=== PATIENT | female | born 1970 | race African-American/Black ===

== ENCOUNTER 2018-07-18 14:08 | Emergency (ER) | payer BC, OTHER ==
[2018-07-18] MEDS ORDERED: FENTANYL CITRATE INJ/PF 100 MCG/2 ML AMPUL IV ONE (14:31)
[2018-07-18] MEDS ORDERED: ONDANSETRON 4 MG TAB.RAPDIS PO ONE (14:31)
--- NOTE | 2018-07-18 14:33 | ER Document Report ---
ED Medical Screen (RME) - General Chief Complaint: Abdominal Pain Stated Complaint: ABDOMINAL PAIN Time Seen by Provider: 07/18/18 14:25 Mode of Arrival: Ambulatory Information source: Patient Notes: 48-year-old female presents with abdominal pain, nausea, vomiting that is been present for the last few hours. Patient describes the pain as an aching sensation located in the periumbilical , left upper quadrant and left flank area. She denies any radiation of the pain. She denies any alleviating or exacerbating factors. Patient has had some dysuria, increased urgency, increased frequency. She denies any vaginal bleeding or vaginal discharge. I have greeted and performed a rapid initial assessment of this patient. A comprehensive ED assessment and evaluation of the patient, analysis of test results and completion of the medical decision making process will be conducted by additional ED providers. PHYSICAL EXAMINATION: GENERAL: Well-appearing, well-nourished and in no acute distress. HEAD: Atraumatic, normocephalic. EYES: Pupils equal round extraocular movements intact, conjunctiva are normal. ENT: Nares patent NECK: Normal range of motion LUNGS: No respiratory distress Musculoskeletal: Normal range of motion NEUROLOGICAL: Normal speech, normal gait. PSYCH: Normal mood, normal affect. SKIN: Warm, Dry, normal turgor, no rashes or lesions noted. TRAVEL OUTSIDE OF THE [place] IN LAST 30 DAYS: No - Related Data Allergies/Adverse Reactions: lisinopril Allergy (Verified 07/18/18 14:11) Physical Exam - Vital signs Vitals: Temp Pulse Resp BP Pulse Ox 97.5 F 71 20 190/103 H 100 07/18/18 14:21 07/18/18 14:21 07/18/18 14:21 07/18/18 14:21 07/18/18 14:21 Course - Vital Signs Vital signs: Temp Pulse Resp BP Pulse Ox 97.5 F 71 20 190/103 H 100 07/18/18 14:21 07/18/18 14:21 07/18/18 14:21 07/18/18 14:21 07/18/18 14:21
[2018-07-18 14:57] LABS: APPEARANCE,URINE CLEAR; BILIRUBIN,URINE NEGATIVE (NEGATIVE); COLOR,URINE STRAW; GLUCOSE, URINE NEGATIVE (NEGATIVE); KETONES,URINE NEGATIVE (NEGATIVE); LEUKOCYTE ESTERASE,URINE NEGATIVE (NEGATIVE); NITRITE,URINE NEGATIVE (NEGATIVE); PROTEIN,URINE 30 mg/dL (NEGATIVE); URINE SPECIFIC GRAVITY 1.008; UROBILINOGEN,URINE NEGATIVE mg/dL (<2.0)
[2018-07-18 15:21] LABS: ABSOLUTE EOSINOPHILS # (AUTO) 0.1 10^3/uL (0.0-0.6); ABSOLUTE LYMPHOCYTES (AUTO) 0.9 10^3/uL (0.5-4.7); ABSOLUTE MONOCYTES (AUTO) 0.4 10^3/uL (0.1-1.4); ABSOLUTE NEUT (AUTO) 8.3 10^3/uL (1.7-8.2); BASOPHILS % (AUTO) 0.5 % (0-2); EOSINOPHILS % (AUTO) 0.5 % (0-6); HEMATOCRIT 38.6 % (36.0-47.0); HEMOGLOBIN 13.1 g/dL (12.0-15.5); LYMPHOCYTES % (AUTO) 9.6 % (13-45); MEAN CORPUSCULAR HEMOGLOBIN 27.5 pg (27.0-33.4); MEAN CORPUSCULAR HGB CONC 33.9 g/dL (32.0-36.0); MEAN CORPUSCULAR VOLUME 81 fl (80-97); MONOCYTES % (AUTO) 4.5 % (3-13); PLATELET COUNT 313 10^3/uL (150-450); RED BLOOD COUNT 4.76 10^6/uL (3.72-5.28); RED CELL DISTRIBUTION WIDTH 14.1 % (11.5-14.0); SEGMENTED NEUTROPHILS % (AUTO) 84.9 % (42-78); TOTAL CELLS COUNTED % (AUTO) 100 %; WHITE BLOOD COUNT 9.7 10^3/uL (4.0-10.5)
--- NOTE | 2018-07-18 15:53 | RADIOLOGY REPORT (SQ) ---
EXAM DESCRIPTION: ACUTE ABDOMEN SERIES COMPLETED DATE/TIME: 07/18/2018 3:43 pm REASON FOR STUDY: L flank pain COMPARISON: AP chest 08/31/2009 NUMBER OF VIEWS: Three views. TECHNIQUE: Frontal chest, supine abdomen and upright abdomen radiographic images acquired. LIMITATIONS: None. FINDINGS: CHEST: Lungs clear of infiltrates. Mild cardiomegaly. No pleural effusion or pneumothora x. No hilar enlargement. FREE AIR: None. No abnormal gas collections. BOWEL GAS PATTERN: Nonobstructive pattern. No dilated loops or air fluid levels. CALCIFICATIONS: No suspicious calcifications. HARDWARE: Clips right upper quadrant post cholecystectomy. SOFT TISSUES: No gross mass or suggestion of organomegaly. BONES: No acute fracture. No worrisome bone lesions. OTHER: No other significant finding. IMPRESSION: NO RADIOGRAPHIC EVIDENCE FOR ACUTE ABDOMINAL DISEASE. TECHNICAL DOCUMENTATION: JOB ID: [id number] [employer]- All Rights Reserved Reading location - IP/workstation name: [facility]
[2018-07-18] MEDS ORDERED: MORPHINE SULFATE 10 MG/ML INJ IV ONE (15:57)
[2018-07-18] MEDS ORDERED: VALSARTAN 80 MG TABLET PO ONE (16:00)
--- NOTE | 2018-07-18 16:42 | RADIOLOGY REPORT (SQ) ---
EXAM DESCRIPTION: CT LTD RENAL STONE PROTOCOL ON COMPLETED DATE/TIME: 07/18/2018 4:12 pm REASON FOR STUDY: L flank pain COMPARISON: None. TECHNIQUE: CT scan of the abdomen and pelvis performed without intravenous or oral contrast. Images reviewed with lung, soft tissue, and bone windows. Reconstructed coronal and sagittal MPR images revi ewed. All images stored on PACS. All CT scanners at this facility use dose modulation, iterative reconstruction, and/or weight based d osing when appropriate to reduce radiation dose to as low as reasonably achievable (ALARA). [facility]: Dose Right [facility]: CareDose [facility]: Dose Right [facility]: Teradose 4D [facility]: Smart Codewars RADIATION DOSE: CT Rad equipment meets quality standard of care and radiation dose reduction techniq ues were employed. CTDIvol: 17.7 mGy. DLP: 982 mGy-cm.mGy. LIMITATIONS: None. FINDINGS: A 2 mm calculus is present at the left ureteral orifice into the bladder, best shown on ax ial image 82 and coronal image 44. There is moderate left hydronephrosis and hydroureter, with moderate perinephric stranding. No other left-sided urinary stones. No gross left renal cysts or masses. LOWER CHEST: No significant findings. No nodules or infiltrates. NON-CONTRASTED LIVER, SPLEEN, ADRENALS: Evaluation limited by lack of IV contrast. No identified sign ificant masses. PANCREAS: No masses. No peripancreatic inflammatory changes. GALLBLADDER: Surgically absent RIGHT KIDNEY AND URETER: No suspicious masses. Assessment limited by lack of IV contrast. No signif icant calcifications. No hydronephrosis or hydroureter. LEFT KIDNEY AND URETER: As above. AORTA AND RETROPERITONEUM: No aneurysm. No retroperitoneal masses or adenopathy. BOWEL AND PERITONEAL CAVITY: No obvious masses or inflammatory changes. No free fluid. APPENDIX: Normal. PELVIS, BLADDER, AND ABDOMINAL WALL:No abnormal masses. No free fluid. Bladder normal. Fibroid uteru s is 15 x 11 x 8 cm in size. Normal-sized ovaries. BONES: No significant findings. OTHER: No other significant finding. IMPRESSION: 2 mm calculus is present at the left ureteral orifice into the bladder. Moderate left h ydronephrosis and hydroureter. COMMENT: Quality ID # [id number]: Final reports with documentation of one or more dose reduction techniques (e.g., Automated exposure control, adjustment of the mA and/or kV according to patient size, use of iterative reconstruction technique) TECHNICAL DOCUMENTATION: JOB ID: [id number] [employer]- All Rights Reserved Reading location - IP/workstation name: [email or web address]
[2018-07-18] MEDS ORDERED: TAMSULOSIN HCL 0.4 MG CAP.SR.24H PO ONE (16:45)
[2018-07-18 17:37] LABS: ALANINE AMINOTRANSFERASE 24 U/L (9-52); ALBUMIN 4.8 g/dL (3.5-5.0); ALKALINE PHOSPHATASE 83 U/L (38-126); ANION GAP 12 (5-19); ASPARTATE AMINO TRANSFERASE 27 U/L (14-36); BILIRUBIN,DIRECT 0.2 mg/dL (0.0-0.4); BILIRUBIN,TOTAL 1.1 mg/dL (0.2-1.3); BLOOD UREA NITROGEN 9 mg/dL (7-20); CARBON DIOXIDE 25 mmol/L (22-30); CHLORIDE 104 mmol/L (98-107); GLUCOSE 105 mg/dL (75-110); LIPASE 78.3 U/L (23-300); POTASSIUM 4.6 mmol/L (3.6-5.0); SODIUM 140.9 mmol/L (137-145); TOTAL PROTEIN 8.4 g/dL (6.3-8.2)
--- NOTE | 2018-07-18 17:48 | ER Document Report ---
ED GI/ - General Chief Complaint: Abdominal Pain Stated Complaint: ABDOMINAL PAIN Time Seen by Provider: 07/18/18 14:25 Mode of Arrival: Ambulatory Information source: Patient Notes: Patient reports having left flank pain that radiated around to the left side of abdomen that started around 10 AM today. Patient states pain made her nauseous causing her to vomit 5 times. Patient denies any diarrhea fever or urinary symptoms. Patient without any cough cold symptoms or chest pain. Patient does states she has a history of hypertension but has been off of her medication for several months. Patient states that she did not get her in as there had been a drug recall what she had. Patient states she just did not take any of her medicines but does have her amlodipine and HCTZ at home. TRAVEL OUTSIDE OF THE [place] IN LAST 30 DAYS: No - HPI Patient complains to provider of: Abdominal pain, Flank pain Onset: This morning Timing/Duration: Sudden, Waxing and waning Quality of pain: Sharp Pain Level: 3 Location: Left flank, Other - Left side of abdomen Vaginal bleeding (Compared to normal period): None Associated symptoms: Nausea, Vomiting. 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 denies: Fever, Recent illness EENT: No symptoms reported Cardiovascular: No symptoms reported. denies: Chest pain Respiratory: No symptoms reported. denies: Cough, Short of breath Gastrointestinal: Abdominal pain, Nausea, Vomiting. denies: Abdomen distended Genitourinary: Flank pain. denies: Dysuria Female Genitourinary: No symptoms reported Musculoskeletal: Back pain Skin: No symptoms reported Hematologic/Lymphatic: No symptoms reported Neurological/Psychological: No symptoms reported Physical Exam - Vital signs Vitals: Temp Pulse Resp BP Pulse Ox 97.5 F 71 20 190/103 H 100 07/18/18 14:21 07/18/18 14:21 07/18/18 14:21 07/18/18 14:21 07/18/18 14:21 - General General appearance: Appears well, Alert In distress: Mild - HEENT Head: Normocephalic, Atraumatic Eyes: Normal Conjunctiva: Normal Nasal: Normal Mouth/Lips: Normal Mucous membranes: Normal Neck: Normal, Supple. No: Lymphadenopathy - Respiratory Respiratory status: No respiratory distress Chest status: Nontender Breath sounds: Normal. No: Rales, Rhonchi, Stridor, Wheezing Chest palpation: Normal - Cardiovascular Rhythm: Regular Heart sounds: S1 appreciated, S2 appreciated Murmur: No - Abdominal Inspection: Obese Distension: No distension Bowel sounds: Normal Tenderness: Tender - Left side of abdomen Organomegaly: No organomegaly - Back Back: CVA tenderness - Left - Extremities General upper extremity: Normal inspection, Normal strength General lower extremity: Normal inspection, Normal strength - Neurological Neuro grossly intact: Yes Cognition: Normal Randolph Coma Scale Eye Opening: Spontaneous Randolph Coma Scale Verbal: Oriented Rochelle Coma Scale Motor: Obeys Commands Randolph Coma Scale Total: 15 - Psychological Associated symptoms: Normal affect, Normal mood - Skin Skin Temperature: Warm Skin Moisture: Dry Skin Color: Normal Course - Re-evaluation Re-evalutation: 07/18/18 Patient with 2 mm stone to distal ureter. No concern for UTI. No concern for sepsis. Patient given a dose of her valsartan and encouraged to resume taking her blood pressure medications that she had previously been on. Patient encouraged to follow-up with both urology as well as her primary care provider. Good return precautions given. Patient's pain able to be managed while here in the ER. - Vital Signs Vital signs: Temp Pulse Resp BP Pulse Ox 99.5 F 73 18 178/89 H 99 07/18/18 18:40 07/18/18 18:40 07/18/18 18:40 07/18/18 18:40 07/18/18 18:40 - Laboratory Result Diagrams: 07/18/18 14:55 07/18/18 16:40 Laboratory results interpreted by me: 07/18/18 07/18/18 07/18/18 14:34 14:55 16:40 RDW 14.1 H Seg Neutrophils % 84.9 H Lymphocytes % 9.6 L Absolute Neutrophils 8.3 H Total Protein 8.4 H Urine Protein 30 H 07/18/18 19:07 Labs- Entire Visit 07/18/18 07/18/18 07/18/18 14:34 14:55 14:55 WBC 9.7 RBC 4.76 Hgb 13.1 Hct 38.6 MCV 81 MCH 27.5 MCHC 33.9 RDW 14.1 H Plt Count 313 Seg Neutrophils % 84.9 H Lymphocytes % 9.6 L Monocytes % 4.5 Eosinophils % 0.5 Basophils % 0.5 Absolute Neutrophils 8.3 H Absolute Lymphocytes 0.9 Absolute Monocytes 0.4 Absolute Eosinophils 0.1 Absolute Basophils 0.0 Sodium Cancelled Potassium Cancelled Chloride Cancelled Carbon Dioxide Cancelled Anion Gap Cancelled BUN Cancelled Creatinine Cancelled Est GFR ( Amer) Cancelled Est GFR (Non-Af Amer) Cancelled Glucose Cancelled Calcium Cancelled Total Bilirubin Cancelled Direct Bilirubin Cancelled Neonat Total Bilirubin Cancelled Neonat Direct Bilirubin Cancelled Neonat Indirect Bili Cancelled AST Cancelled ALT Cancelled Alkaline Phosphatase Cancelled Total Protein Cancelled Albumin Cancelled Lipase Cancelled Urine Color STRAW Urine Appearance CLEAR Urine pH 9.0 Ur Specific [place] 1.008 Urine Protein 30 H Urine Glucose (UA) NEGATIVE Urine Ketones NEGATIVE Urine Blood NEGATIVE Urine Nitrite NEGATIVE Urine Bilirubin NEGATIVE Urine Urobilinogen NEGATIVE Ur Leukocyte Esterase NEGATIVE Urine WBC (Auto) 0 Urine RBC (Auto) 0 Urine Mucus (Auto) RARE Urine Ascorbic Acid NEGATIVE Urine HCG, Qual NEGATIVE 07/18/18 16:40 WBC RBC Hgb Hct MCV MCH MCHC RDW Plt Count Seg Neutrophils % Lymphocytes % Monocytes % Eosinophils % Basophils % Absolute Neutrophils Absolute Lymphocytes Absolute Monocytes Absolute Eosinophils Absolute Basophils Sodium 140.9 Potassium 4.6 Chloride 104 Carbon Dioxide 25 Anion Gap 12 BUN 9 Creatinine 0.96 Est GFR ( Amer) > 60 Est GFR (Non-Af Amer) > 60 Glucose 105 Calcium 10.0 Total Bilirubin 1.1 Direct Bilirubin 0.2 Neonat Total Bilirubin Not Reportable Neonat Direct Bilirubin Not Reportable Neonat Indirect Bili Not Reportable AST 27 ALT 24 Alkaline Phosphatase 83 Total Protein 8.4 H Albumin 4.8 Lipase 78.3 Urine Color Urine Appearance Urine pH Ur Specific [place] Urine Protein Urine Glucose (UA) Urine Ketones Urine Blood Urine Nitrite Urine Bilirubin Urine Urobilinogen Ur Leukocyte Esterase Urine WBC (Auto) Urine RBC (Auto) Urine Mucus (Auto) Urine Ascorbic Acid Urine HCG, Qual - Diagnostic Test Radiology reviewed: Reports reviewed Discharge - Discharge Clinical Impression: Ureteral calculus, left, Left flank pain, Noncompliance Fibroid uterus Qualifiers: Uterine leiomyoma location: unspecified location Qualified Code(s): D25.9 - Leiomyoma of uterus, unspecified Hypertension Qualifiers: Hypertension type: unspecified Qualified Code(s): I10 - Essential (primary) hypertension Condition: Stable Disposition: HOME, SELF-CARE Instructions: High Blood Pressure, Requiring Treatment ([facility]) Additional Instructions: Return immediately for any new or worsening symptoms Followup with your primary care provider, call tomorrow to make a followup appointment Follow-up with a urologist for further evaluation, call tomorrow for an appointment. [facility] [phone] KIDNEY STONE: You are passing or have passed a kidney stone. These stones are usually due to increased calcium or uric acid concentrations in your urine. Stones within the kidney itself are not painful. The pain occurs as the stone leaves the kidney to pass down the long tube, called the ureter, leading to the bladder. If the stone is small, it will usually pass by itself. Most patients can pass the stone at home. You will usually receive medications for pain, nausea or vomiting, and sometimes a medication to assist in passing the kidney stone. However, if the pain is very severe or if vomiting prevents you from taking oral pain medications, you may need to return for further treatment. Drink three or four quarts of fluids per day. You will be given pain medication (if needed) and urine strainers. Strain all your urine to see if the stone passes. If your doctor has asked you to bring the stone in for analysis, return with the stone once it has passed. Return if pain or vomiting become severe, if you develop a high fever, if you are unable to pass your urine, or if other unusual symptoms occur. PAIN MEDICATION INJECTION: You have received an injection of a pain medication. You should experience significant pain relief within 45 minutes. This drug is a narcotic - - it will impair your judgement, slow your reaction time and make you sleepy ( as well as relieve your pain). Narcotics also can cause nausea. You should not drive, work with machinery, or perform any task requiring mental alertness until all effects of the medication are gone -- six to eight hours. Do not take any alcohol, or sedatives, and do not take any other medication without checking with your physician. ANT[place]AUSEA MEDICATION: You have been given a medication to suppress nausea and vomiting. This type of medication can be given as a shot, pill, or suppository. It will usually last for many hours. Pills and shots usually last six to eight hours, suppositories last about 12 hours. For the typical illness, only one or two doses of the medication may be necessary. Mild lightheadedness may occur. This type of medicine can cause drowsiness. Do not drive or operate dangerous machinery while under its influence. Do not mix with alcohol. See your doctor at once if you have muscle spasms or tightness, or uncontrollable motions (particularly of the neck, mouth, or jaw). Persistent vomiting or severe lightheadedness should also be evaluated by the physician. ORAL NARCOTIC MEDICATION: You have been given a prescription for pain control. This medication is a narcotic. It's best taken with food, as nausea can result if taken on an empty stomach. Don't operate machinery or drive within six hours of taking this medication. Do not combine this medicine with alcohol, or with any medication which can cause sedation (such as cold tablets or sleeping pills) unless you get permission from the physician. Narcotics tend to cause constipation. If possible, drink plenty of fluids and eat a diet high in fiber and fruits. Please be aware that prescription narcotics also have the potential for abuse. People become addicted to these medications because of the general sense of wellbeing that they induce. This feeling along with a significant reduction in tension, anxiety, and aggression provides a stimulating seductive quality to these drugs. Once your pain is under control, we encourage you to discard your unused narcotics. FLOMAX (tamsulosin): Flomax is a medicine that shrinks the prostate gland. It helps relieve symptoms of benign prostatic hypertrophy, such as frequent urination, weak stream, and inadequate emptying. It has been shown to dilate the ureter (tube leading from the kidney to the bladder) and help in passing kidney stones Flomax usually causes no side effects. You may notice slight tiredness and dizziness for a few days. Some patients develop nasal congestion. Rarely, impotence can occur. If the symptoms are bothersome and don't improve with continued use, call your doctor. Contact your doctor or return if you have fainting spells, severe weakness or dizziness, shortness of breath, or rash. FOLLOW-UP CARE: If you have been referred to a physician for follow-up care, call the physician s office for an appointment as you were instructed or within the next two days. If you experience worsening or a significant change in your symptoms, notify the physician immediately or return to the Emergency Department at any time for re-evaluation. Prescriptions: Ondansetron HCl [Zofran 4 mg Tablet] 1 - 2 tab PO Q6 PRN #15 tablet PRN Reason: Oxycodone HCl/Acetaminophen [Percocet 5-325 mg Tablet] 1 tab PO ASDIR PRN #15 tablet PRN Reason: Tamsulosin HCl [Flomax 0.4 mg Cap.sr] 0.4 mg PO DAILY #7 cap.sr.24h Valsartan 80 mg PO DAILY #30 tablet Forms: Return to Work Referrals: ELIZABETH PATEL MD [Primary Care Provider] - Follow up tomorrow
[2018-07-18 18:42] VITALS: BP 178/89
== END 2018-07-18 18:46 | disposition home or self-care (01) ==
LOC: ER 14:08
DX: N20.1 Calculus of ureter (principal); D25.9 Leiomyoma of uterus, unspecified; R10.9 Unspecified abdominal pain; M54.9 Dorsalgia, unspecified; R11.2 Nausea with vomiting, unspecified; I10 Essential (primary) hypertension; Z90.49 Acquired absence of other specified parts of digestive tract
CPT/HCPCS: 99284; 96374; 96375; 36415; 83690; 85025; 81025; 80053; 81001; 74022; 76380; S0119; J3010; J2270; J3490

== ENCOUNTER 2020-04-22 05:45 | Inpatient (IN) | payer OTHER ==
[2020-04-15 09:41] LABS: APPEARANCE,URINE CLEAR; BILIRUBIN,URINE NEGATIVE (NEGATIVE); COLOR,URINE STRAW; GLUCOSE, URINE NEGATIVE (NEGATIVE); KETONES,URINE NEGATIVE (NEGATIVE); LEUKOCYTE ESTERASE,URINE NEGATIVE (NEGATIVE); NITRITE,URINE NEGATIVE (NEGATIVE); PROTEIN,URINE NEGATIVE (NEGATIVE); UROBILINOGEN,URINE NEGATIVE mg/dL (<2.0)
[2020-04-15 09:44] LABS: HEMATOCRIT 27.8 % (36.0-47.0); HEMOGLOBIN 9.1 g/dL (12.0-15.5); MEAN CORPUSCULAR HEMOGLOBIN 22.4 pg (27.0-33.4); MEAN CORPUSCULAR HGB CONC 32.6 g/dL (32.0-36.0); MEAN CORPUSCULAR VOLUME 69 fl (80-97); PLATELET COUNT 306 10^3/uL (150-450); RED BLOOD COUNT 4.04 10^6/uL (3.72-5.28); WHITE BLOOD COUNT 4.7 10^3/uL (4.0-10.5)
[2020-04-15 10:08] LABS: ANION GAP 8 (5-19); BLOOD UREA NITROGEN 14 mg/dL (7-20); CALCIUM 9.2 mg/dL (8.4-10.2); CARBON DIOXIDE 28 mmol/L (22-30); CHLORIDE 102 mmol/L (98-107); GLUCOSE 112 mg/dL (75-110); POTASSIUM 3.9 mmol/L (3.6-5.0)
--- NOTE | 2020-04-15 10:24 | RADIOLOGY REPORT (SQ) ---
EXAM DESCRIPTION: CHEST PA/LATERAL IMAGES COMPLETED DATE/TIME: 04/15/2020 9:10 am REASON FOR STUDY: PRE-OP COMPARISON: 08/31/2009 EXAM PARAMETERS: NUMBER OF VIEWS: two views TECHNIQUE: Digital Frontal and Lateral radiographic views of the chest acquired. RADIATION DOSE: NA LIMITATIONS: none FINDINGS: LUNGS AND PLEURA: No opacities, masses or pneumothorax. No pleural effusion. MEDIASTINUM AND HILAR STRUCTURES: No masses or contour abnormalities. HEART AND VASCULAR STRUCTURES: Heart remains enlarged. No failure. BONES: No acute findings. HARDWARE: None in the chest. OTHER: No other significant finding. IMPRESSION: Stable cardiomegaly. No acute findings in the chest. TECHNICAL DOCUMENTATION: JOB ID: [id number] 2010 [employer]- All Rights Reserved Reading location - IP/workstation name: [email or web address]
--- NOTE | 2020-04-16 14:17 | EKG REPORT ---
SEVERITY:- BORDERLINE ECG - SINUS RHYTHM LVH BY VOLTAGE : Confirmed by: Vaibhav Garcia MD 16-Apr-2020 14:16:32
[~2020-04-22 05:45] MED LIST: CEFAZOLIN 1 GM/D5W RTU 1 GM/50 ML RTUPB IV ONE; CEFAZOLIN 1 GM/D5W RTU 1 GM/50 ML RTUPB IV PRN; LACTATED RINGERS 1000 ML IV PRN; LIDOCAINE 0.5% INJ-PF (5 MG/ML) 50 ML SDV SUBCUT PRN
[2020-04-22] MEDS ORDERED: PROPOFOL INJ 200 MG/20 ML VIAL IV ONE (06:19)
[2020-04-22] MEDS ORDERED: MIDAZOLAM 2 MG/2 ML INJ ONE (06:19)
[2020-04-22] MEDS ORDERED: SUGAMMADEX SODIUM 200 MG/2 ML SDV IV ONE (06:19)
[2020-04-22] MEDS ORDERED: ONDANSETRON HCL INJ/PF 4 MG/2 ML SDV ONE (06:19)
[2020-04-22] MEDS ORDERED: DEXAMETHASONE SOD PHOSPHATE INJ 4 MG/1 ML VIAL ONE (06:19)
[2020-04-22] MEDS ORDERED: LIDOCAINE 0.5% INJ-PF (5 MG/ML) 50 ML SDV ONE (06:20)
[2020-04-22] MEDS ORDERED: BUPIVACAINE INJ/PF LIPOSOME/PF 266 MG/20 ML SDV ONE (07:36)
[2020-04-22] MEDS ORDERED: MORPHINE SULFATE 10 MG/ML INJ IV PRN (07:39)
[2020-04-22] MEDS ORDERED: DIPHENHYDRAMINE HCL 50 MG/ML VIAL IV PRN (07:39)
[2020-04-22] MEDS ORDERED: MEPERIDINE HCL/PF INJ 25 MG/1 ML DISP.SYRIN IV PRN (07:39)
[2020-04-22] MEDS ORDERED: ONDANSETRON HCL INJ/PF 4 MG/2 ML SDV IV PRN (07:39)
[2020-04-22] MEDS ORDERED: FENTANYL CITRATE INJ/PF 100 MCG/2 ML AMPUL IV PRN ×3 (07:39)
[2020-04-22] MEDS ORDERED: PROMETHAZINE HCL INJ 25 MG/1 ML VIAL IV PRN ×2 (07:39)
--- NOTE | 2020-04-22 09:03 | Operative Report ---
Operative Report DATE OF SURGERY: 04/22/20 PREOPERATIVE DIAGNOSIS: Uterine leiomyoma POSTOPERATIVE DIAGNOSIS: Same OPERATION: DARELL/BSO SURGEON: ERICA CALDERON ANESTHESIA: GA TISSUE REMOVED OR ALTERED: Cervix uterus tubes ovaries COMPLICATIONS: None INTRAOPERATIVE FINDINGS: 20-week sized multinodular uterus, normal cervix normal tubes and ovaries normal upper abdomen PROCEDURE: INDICATIONS FOR PROCEDURE: The patient had unreasonable uterine bleeding despite multiple outpatient management. She desired attempt at definitive therapy. The usual risks of bleeding, infection, anesthesia, and damage to organs or tissues was discussed with the patient who understood, and she desires attempt at definitive therapy. PROCEDURE: The patient was taken to the operating room. The patient was placed in Supine position. Adequate anesthesia was ascertained. She was prepped and draped in the usual manner for a abdominal hysterectomy. EUA was performed after a time out was performed and antibiotics had been given. Bladder was drained under sterile technique. Via a midline incision extending through the subcutaneous fat and fascia the peritoneum was and without difficulty and retractor placed. Abdominal contents were packed out of the pelvis round ligaments were identified bilaterally and held. The bladder was advanced sequentially throughout this aspect of the procedure with LigaSure device used for hemostasis bilaterally. Alternating from the right to left the upper broad ligaments and were cauterized and down to the level uterine vessels which were suture ligated free tied. The cervix was then amputated the cervix and uterus were handed off the operative field. The pedicles were noted to be dry. The ovaries were visually normal. Vagina was closed interrupted #1 chromic catgut. The Essure was used for bilateral salpingo-oophorectomy bilaterally.. Good hemostasis was noted. The abdomen was irrigated. The fascia was closed #1 double-stranded PDS suture skin was closed with skin paige after closure of adipose tissue with some 0 plain gut Exparel was used postoperatively skin paige placed on in cision . the bladder was drained of a small amount of urine at the completion of the case. All sponge and needle counts were correct.
[2020-04-22] MEDS: FENTANYL CITRATE INJ/PF 100 MCG/2 ML AMPUL ONE ×3 (09:20→09:50)
[2020-04-22] MEDS: MORPHINE SULFATE 10 MG/ML INJ ONE ×3 (09:39→16:53)
[2020-04-22] MEDS ORDERED: FENTANYL CITRATE INJ/PF 100 MCG/2 ML AMPUL ONE (09:56)
[2020-04-22] MEDS ORDERED: MORPHINE INJ 4 MG DOSE (EDIT ROUTE) INJ PRN (11:00)
[2020-04-22] MEDS ORDERED: PROMETHAZINE HCL INJ 25 MG/1 ML VIAL IM PRN (11:00)
[2020-04-22] MEDS ORDERED: OXYCODONE-ACETAMINOPHEN 5-325 MG TABLET PO PRN (11:00)
[2020-04-22] MEDS ORDERED: MORPHINE INJ 8 MG DOSE IM PRN (11:00)
[2020-04-22] MEDS ORDERED: MORPHINE INJ 6 MG DOSE (EDIT ROUTE) INJ PRN (11:00)
[2020-04-22] MEDS: CEFAZOLIN 1 GM RTU (EDIT START TIME) IV SCH ×2 (12:39→18:07)
[2020-04-22] MEDS: IBUPROFEN 800 MG TABLET PO SCH ×2 (13:58→21:23)
[2020-04-22] MEDS ORDERED: SUCCINYLCHOLINE CHLORIDE INJ 200 MG/10 ML VIAL ONE (14:57)
[2020-04-22] MEDS ORDERED: GLYCOPYRROLATE 1 MG/5 ML VIAL ONE (14:57)
[2020-04-22] MEDS ORDERED: ROCURONIUM BROMIDE INJ 50 MG/5 ML VIAL IV ONE (14:57)
[2020-04-22] MEDS ORDERED: SIMETHICONE 80 MG TAB.CHEW PO PRN (15:43)
[2020-04-22] MEDS ORDERED: RINGERS SOLUTION,LACTATED 1,000 ML IV PRN (15:44)
[2020-04-23 05:47] LABS: HEMATOCRIT 24.3 % (36.0-47.0); MEAN CORPUSCULAR HEMOGLOBIN 22.6 pg (27.0-33.4); MEAN CORPUSCULAR HGB CONC 33.1 g/dL (32.0-36.0); MEAN CORPUSCULAR VOLUME 68 fl (80-97); PLATELET COUNT 291 10^3/uL (150-450); RED BLOOD COUNT 3.55 10^6/uL (3.72-5.28); RED CELL DISTRIBUTION WIDTH 19.5 % (11.5-14.0); WHITE BLOOD COUNT 7.4 10^3/uL (4.0-10.5)
[2020-04-23] MEDS: IBUPROFEN 800 MG TABLET PO SCH (05:55)
[2020-04-23 08:13] VITALS: BP 124/71
[2020-04-23] MEDS ORDERED: HYDROCHLOROTHIAZIDE 12.5 MG TABLET PO SCH (10:00)
[2020-04-23] MEDS ORDERED: AMLODIPINE BESYLATE 10 MG TABLET PO SCH (10:00)
[2020-04-23] MEDS ORDERED: METOPROLOL SUCCINATE 50 MG TAB.SR.24H PO SCH (10:00)
[2020-04-23] MEDS ORDERED: LOSARTAN POTASSIUM 50 MG TABLET PO SCH (10:00)
== END 2020-04-23 09:12 | disposition home or self-care (01) | DRG 743 ==
LOC: INOR 05:45 → 2N 10:17
PROVIDERS: ADMIT Specialist; ATTEND Specialist
PROC: 0UT70ZZ Resection of Bilateral Fallopian Tubes, Open Approach (ICD-10-PCS; 2020-04-22)
PROC: 0UT20ZZ Resection of Bilateral Ovaries, Open Approach (ICD-10-PCS; 2020-04-22)
PROC: 0UT90ZZ Resection of Uterus, Open Approach (ICD-10-PCS; principal; 2020-04-22 07:15)
DX: D25.1 Intramural leiomyoma of uterus (principal); Z30.2 Encounter for sterilization; Z88.8 Allergy status to other drugs, medicaments and biological substances; Z11.59 Encounter for screening for other viral diseases
CPT/HCPCS: 36415; 71046; 80048; 81001; 840; 84132; 84703; 85027; 86850; 86900; 86901; 87635; 88307; 93005; 93010; 94799; C1758; C9290; C9803; J0330; J0690; J1100; J2250; J2270; J2405; J2550; J2704; J3010; J3490; J7120